=== PATIENT | female | born 1940 | race Caucasian/White ===

== ENCOUNTER → 2016-12-15 | Outpatient (CLI) | payer MEDICARE ==
[~2016-12-15] MED LIST: ADVAIR DIS1 PUFF/DO1 IH; ASPIRIN EC81 MG PO; CLARITIN DPS10 MG PO; COREG DPS12.5 MG PO; COUMADIN5 MG PO; DELTASONE DPS1 MG PO; FENOFIBRATE160 MG PO; GLUCOTROL DPS5 MG PO; HYDROCHLOROTHIA25 MG PO; LASIX DPS20 MG PO; LOSARTAN POTAS100 MG PO; MAALOX DPS30 ML PO; MACROBID100 MG PO; MIRALAX PACKET17 GM PO; MYCELEX TROCHE10 MG PO; NITROSTAT0.4 MG SL; NORVASC DPS10 MG PO; PRAVASTATIN SOD40 MG PO; PROAIR RESPICL90 MCG IH; PROTONIX40 MG PO; PROVENTIL2.5 MG/3 M IH; TYLENOL DPS325 MG PO
== END | disposition home or self-care (01) ==
LOC: RAD.S 14:05
DX: R10.9 Unspecified abdominal pain (principal); N32.89 Other specified disorders of bladder

== ENCOUNTER 2017-01-16 14:05 | Inpatient (IN) | payer MEDICARE ==
[~2017-01-16] VITALS: Ht 165.1 cm; Wt 87.8 kg
--- NOTE | ~2017-01-16 | ECH ---
Transthoracic Echocardiography Report (TTE) Demographics Patient Name GABRIELLE MACK Date of Study 01/16/2017 D Patient Number [id number] Visit Number [id number] Date of 1940 Room Number 413 Accession Number [id number] Gender Female Age 76 year(s) Referring Jie Lucero MD Cardiac Rehab Nurse Marta Salazar Physician Kathia Hutson MD [facility] Physician Interpreting Jie Lucero MD Edger Hand Physician Supervising Ordering Physician Kathia Hutson MD/DON MULLINS Nurse Stress Veterinary Laboratory Technician Conclusions Summary Technically adequate exam. The estimated left ventricular ejection fraction is 60%. Diastolic assessment reveals Grade I diastolic dysfunction. Trivial tricuspid regurgitation by color Doppler. There is moderate pulmonary hypertension. The pulmonary pressure (RVSP) is 62 mmHg. Procedure Type of Study TTE procedure:Echo Complete SF. Procedure Date Date: 01/16/2017 Start: 03:00 PM Technical Quality: Adequate visualization Indications:Shortness of breath, Coronary artery disease, Hypertension, Diabetes and History of CABG. Appropriate Use Criteria: 9 Height: 65 inches Weight: 196 pounds BSA: 1.96 m Rhythm: NSR HR: 81 bpm BP: 187/91 mmHg M-Mode/2D Measurements LV Diastolic Dimension: 4.1 cm LV Systolic Dimension: 2.71 cm LV Septum Diastolic: 0.87 cm LV PW Diastolic: 0.83 cm AO Root Dimension: 2.7 cm Cardiac Output: 4.48 l/min LA Dimension: 4.14 cm Cardiac Index: 2.29 l/min*m RV Diastolic Dimension: 3.68 cm LA volume index: 22 ml/m LVOT: 1.91 cm LVOT VTI: 19.32 cm RV Base: 3.1 cm LV Stroke volume: 55.33 ml RV Mid: 2.1 cm LV Stroke volume index: 28.23 ml/m TAPSE: 2 cm TDI-S': 10 cm/s Doppler Measurements AV Peak Velocity: 1.4 m/s MV Peak E-Wave: 0.88 m/s AV Peak Gradient: 7.84 mmHg MV Peak A-Wave: 0.94 m/s AV Mean Gradient: 4.28 mmHg MV E/A Ratio: 0.94 LVOT Peak Velocity: 0.97 m/s MV P1/2t: 70.9 msec AV Area (Continuity):1.83 cm MV Deceleration Time: 203.1 msec TR Velocity:3.85 m/s MV Area (PHT): 3.1 cm TR Gradient:59.29 mmHg PV Peak Velocity: 0.94 m/s Estimated RAP:3 mmHg PV Peak Gradient: 3.5 mmHg Estimated RVSP: 62 mmHg Estimated PASP: 62.29 mmHg E' Septal Velocity: 0.06 m/s A' Septal Velocity: 0.09 m/s E' Lateral Velocity: 0.08 m/s A' Lateral Velocity: 0.11 m/s RA Area: 12 cm Findings Left Ventricle Normal left ventricle size and function. Diastolic assessment reveals Grade I diastolic dysfunction. Right Ventricle Normal right ventricle structure and function. Left Atrium Normal left atrial size. Right Atrium Normal right atrial size. Mitral Valve Normal mitral valve structure and function. Mild mitral regurgitation by color Doppler. Aortic Valve The aortic valve is mildly sclerotic. Tricuspid Valve Normal tricuspid valve structure and function. Trivial tricuspid regurgitation by color Doppler. There is moderate pulmonary hypertension. The pulmonary pressure (RVSP) is 62 mmHg. Pulmonic Valve The pulmonic valve is not well visualized. Pericardial Effusion No evidence of pericardial effusion. Miscellaneous Visualized portions of the aortic root and ascending aorta appear normal in size. Pleural Effusion No evidence of pleural effusion. Signature
--- NOTE | ~2017-01-16 | FD ---
ADMIT: 01/16/2017 RM/LOC: 413 [facility] MR#: [id number] [address] [address] GABRIELLE MACK [address] [place] [address] Final Diagnosis SEX: F AGE: 76 : 1940 ADMISSION DATE: 01/16/2017 DISCHARGE DATE: 01/18/2017 FINAL DIAGNOSES: 1. Asthma exacerbation. 2. Allergic rhinitis. 3. Uncomplicated urinary tract infection. 4. Hypertension. 5. Diabetes, type 2. 6. Chronic venous stasis edema. 7. Coronary artery disease with stable symptoms. 8. Antibiotic induced diarrhea, not C. difficile (Clostridium difficile). The patient was sent home with no antibiotic, but she will finish out a prednisone taper and follow up with myself in the clinic in the next few days. Pratima Bae MD/ gabi JOB #: [id number] CC: Pratima Bae MD, Attending Physician Pratima Bae MD, Family Physician
--- NOTE | 2017-01-17 08:18 | HP ---
ADMIT: 01/16/2017 RM/LOC: 413 [facility] MR#: [id number] [address] [address] KARANSANJANAAUSTINANASTASIIAGABRIELLE Jeannette [address] [place] [address] History and Physical SEX: F AGE: 76 : 1940 DATE OF SERVICE: CHIEF COMPLAINT: Shortness of breath. HISTORY OF PRESENT ILLNESS: This is a 76-year-old lady who has asthmatic bronchitis as well as heart disease, hypertension, and type 2 diabetes. On January 03, she came to the clinic complaining that she had been short of breath for a couple of weeks and it was getting worse. She had a normal chest x-ray. She was treated for asthma exacerbation with a course of prednisone as well as some Levaquin. She came back on the for followup and was only slightly better. She was maintaining oxygenation in the low 90s on room air. With that, the plan was to set up an echocardiogram, and also Advair was added. Despite the Advair, she continued to have shortness of breath and was trying to "put up with it," but finally came back to the clinic today because she was unable to get around her house and take care of herself and her . The patient is typically very independent. She cares for her who is in his mid 80s and has heart failure. She has a diagnosis of asthma within the last couple of years and was on steroid inhaler and rescue inhaler for a couple of months and then was told by Pulmonology that she was doing well and could stop the steroid inhaler and just use a rescue inhaler. The rescue inhaler has not been helpful for her these last few days. She is admitted with hypoxia and asthma exacerbation and also to rule out cardiac event as cause of her symptoms. PAST MEDICAL HISTORY: Significant for coronary artery disease, and she has had four vessel bypass surgery in July of 2011. She also has type 2 diabetes, which has been well controlled with single medicine. Other history includes hypertension, gastritis, hyperlipidemia, osteoarthritis, especially of the knees, and diverticulosis. PAST SURGICAL HISTORY: Include her 4-vessel bypass and remote appendectomy, hysterectomy, and in 2012, she had left total knee replacement. MEDICATIONS: 1. Aspirin 81 mg daily. 2. Advair 100/50 one puff b.i.d., which she just started 8 days ago. 3. Albuterol nebulizer every 4 hours p.r.n. 4. Amlodipine 10 mg daily. 5. Carvedilol 12.5 mg b.i.d. 6. Fenofibrate 160 mg daily. 7. Lasix 20 mg daily. 8. Glipizide 5 mg at bedtime. 9. Hydrochlorothiazide 25 mg daily. 10.Loratadine 10 mg daily. 11.Losartan 100 mg daily. 12.Pravastatin 40 mg at bedtime. ADMIT: 01/16/2017 RM/LOC: 413 [facility] MR#: [id number] [address] [address] GABRIELLE MACK [address] [place] [address] History and Physical SEX: F AGE: 76 : 1940 SOCIAL HISTORY: She lives with her and takes care of him. She manages household and takes him to his appointments as well as cares for herself. No alcohol use. No drug use. She never smoked. Denies any significant caffeine use. ALLERGIES: BACTRIM AND PENICILLIN WHICH CAUSE RASH, BENAZEPRIL WHICH CAUSES A COUGH, AND CODEINE WHICH CAUSES NAUSEA. FAMILY HISTORY: Positive for hypertension, heart disease, and some nonspecific cancer. She is uncertain of that exactly. REVIEW OF SYSTEMS: GENERAL: She denies any fevers, although she had low- grade temp and myalgias at the very beginning of this illness. ENT: She has a little bit of nasal drainage that has been clear. She blames that on allergy symptoms. No ear pain. No throat pain. CARDIOPULMONARY: Positive for sensation of heaviness, especially when she is trying to walk around her house and cannot catch her breath. Denies any sharp pain anywhere in her chest. Also, denies any pain radiating into the arms. When she had her initial angina in 2010, her angina equivalent symptom was pain in the left arm. She has a dry cough, nonproductive. GASTROINTESTINAL: Benign. Her appetite is a little bit down. GENITOURINARY: She said she has had just a little bit of burning with urination starting today. MUSCULOSKELETAL: Positive for joint pain especially at her fingers and her knees. NEUROPSYCHIATRIC: Benign. Family that are in the room and have seen her over the last few days said she has had no confusion. She denies any falls. PHYSICAL EXAMINATION: VITAL SIGNS: Blood pressure in the clinic was 160/100, pulse rate in the 80s, and she is breathing 25 times a minute. She can speak with about 2-3 words and then has to take a breath. She is afebrile. Oxygen was between 88-90% on room air. Her weight was 197 pounds. GENERAL: She is seated in a chair with dyspnea. She is able to sit forward. HEENT: She is not doing a pursed lip breathing but has obvious shortness of breath. Ear drums are normal. Throat was clear. She looks hydrated. NECK: Had no obvious adenopathy. In the upright and approximately 50-degree position, I see no obvious jugular venous distention. LUNGS: Very diminished. I can hear breath sounds in the upper anterior and posterior areas, but I hear no breath sounds in the lower lobes. There is no wheeze. HEART: Regular. I hear no murmur. ABDOMEN: Her belly is nontender, nondistended. Bowel sounds are normal. EXTREMITIES: Have no cyanosis. She has good capillary refill. She just has a trace of ankle edema which is chronic. LABORATORY DATA: The white count is normal at 8.4, hemoglobin 14.5, platelet count 249. Her CK is 120 with a troponin of less than 0.015, and her creatinine was 0.8 with electrolytes all looking normal. Glucose was 208. ADMIT: 01/16/2017 RM/LOC: 413 [facility] MR#: [id number] [address] [address] GABRIELLE MACK [address] [place] [address] History and Physical SEX: F AGE: 76 : 1940 ASSESSMENT: 1. Asthmatic bronchitis with acute exacerbation. 2. Coronary artery disease. 3. Hypertension, currently uncontrolled. 4. Diabetes type 2. PLAN: Admit to the hospital and start her on oxygen. We will get an EKG and echocardiogram and ask Cardiology to see her. I will also start her on Lovenox for DVT prophylaxis. I do not suspect sepsis in this patient. I will give her IV steroid and more aggressive pulmonary toilet. We will continue her Advair and consider addition of other medications based on how she does with asthmatic symptoms. We will do sliding scale insulin and anticipate her sugars around a little bit higher on the steroid. I will continue her Coreg, losartan, amlodipine, hydrochlorothiazide, and Lasix for blood pressure but ask Cardiology to weigh in on better control if necessary. I did increase her Advair from 100 to 250/50, and again we will consider other interventions based on her hospital course. Pratima Bae MD/ serg JOB #: [id number] CC: Pratima Bae, Attending Physician Pratima Bae, Family Physician
[2017-01-19] MEDS ORDERED: DELTASONE DPS1 MG PO (06:39)
[2017-02-01] MEDS ORDERED: COUMADIN5 MG PO (08:48)
[2017-02-01] MEDS ORDERED: PROTONIX40 MG PO (08:49)
[2017-02-01] MEDS ORDERED: MACROBID100 MG PO (08:49)
[2017-02-01] MEDS ORDERED: MYCELEX TROCHE10 MG PO (08:49)
[2017-02-01] MEDS ORDERED: MIRALAX PACKET17 GM PO (08:50)
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
== END 2017-01-18 11:15 | disposition home or self-care (01) | DRG 202 ==
LOC: 4PCU 14:05
PROVIDERS: ADMIT Family Medicine
DX: J45.901 Unspecified asthma with (acute) exacerbation (principal); J96.01 Acute respiratory failure with hypoxia; N39.0 Urinary tract infection, site not specified; E11.22 Type 2 diabetes mellitus with diabetic chronic kidney disease; R09.02 Hypoxemia; M79.7 Fibromyalgia; N18.2 Chronic kidney disease, stage 2 (mild); I12.9 Hypertensive chronic kidney disease with stage 1 through stage 4 chronic kidney disease, or unspecified chronic kidney disease; E66.9 Obesity, unspecified; I25.10 Atherosclerotic heart disease of native coronary artery without angina pectoris; H91.90 Unspecified hearing loss, unspecified ear; E78.5 Hyperlipidemia, unspecified; M19.90 Unspecified osteoarthritis, unspecified site; K57.90 Diverticulosis of intestine, part unspecified, without perforation or abscess without bleeding; Z96.652 Presence of left artificial knee joint; Z95.1 Presence of aortocoronary bypass graft; Z79.82 Long term (current) use of aspirin; Z79.84 Long term (current) use of oral hypoglycemic drugs; Z86.718 Personal history of other venous thrombosis and embolism; Z82.49 Family history of ischemic heart disease and other diseases of the circulatory system; Z68.32 Body mass index [BMI] 32.0-32.9, adult

== ENCOUNTER 2017-01-19 21:50 | Observation (INO) | payer MEDICARE ==
[~2017-01-19] VITALS: Ht 165.1 cm; Wt 87.5 kg
[~2017-01-19 21:50] MED LIST changes: -ADVAIR DIS1 PUFF/DO1 IH; -ASPIRIN EC81 MG PO; -CLARITIN DPS10 MG PO; -COREG DPS12.5 MG PO; -COUMADIN5 MG PO; -FENOFIBRATE160 MG PO; -GLUCOTROL DPS5 MG PO; -HYDROCHLOROTHIA25 MG PO; -LASIX DPS20 MG PO; -LOSARTAN POTAS100 MG PO; -MAALOX DPS30 ML PO; -MACROBID100 MG PO; -MIRALAX PACKET17 GM PO; -MYCELEX TROCHE10 MG PO; -NITROSTAT0.4 MG SL; -NORVASC DPS10 MG PO; -PRAVASTATIN SOD40 MG PO; -PROAIR RESPICL90 MCG IH; -PROTONIX40 MG PO; -PROVENTIL2.5 MG/3 M IH; -TYLENOL DPS325 MG PO
[2017-01-20] MEDS ORDERED: COREG DPS12.5 MG PO (20:21)
[2017-01-20] MEDS ORDERED: FENOFIBRATE160 MG PO (20:21)
[2017-01-20] MEDS ORDERED: ASPIRIN EC81 MG PO (20:21)
[2017-01-20] MEDS ORDERED: NORVASC DPS10 MG PO (20:21)
[2017-01-20] MEDS ORDERED: PRAVASTATIN SOD40 MG PO (20:22)
[2017-01-20] MEDS ORDERED: LASIX DPS20 MG PO (20:22)
[2017-01-20] MEDS ORDERED: GLUCOTROL DPS5 MG PO (20:22)
[2017-01-20] MEDS ORDERED: NITROSTAT0.4 MG SL (20:22)
[2017-01-20] MEDS ORDERED: LOSARTAN POTAS100 MG PO (20:22)
[2017-01-20] MEDS ORDERED: CLARITIN DPS10 MG PO (20:22)
[2017-01-20] MEDS ORDERED: ADVAIR DIS1 PUFF/DO1 IH (20:23)
[2017-01-20] MEDS ORDERED: HYDROCHLOROTHIA25 MG PO (20:23)
[2017-01-20] MEDS ORDERED: PROAIR RESPICL90 MCG IH (20:23)
[2017-01-20] MEDS ORDERED: PROVENTIL2.5 MG/3 M IH (20:23)
[2017-01-20] MEDS ORDERED: MAALOX DPS30 ML PO (20:24)
[2017-01-20] MEDS ORDERED: TYLENOL DPS325 MG PO (20:24)
--- NOTE | 2017-01-23 10:18 | ER ---
ADMIT: 01/19/2017 RM/LOC: 414 [facility] MR#: [id number] 26[address] [facility] [address] [place], [place] [address] GABRIELLE MACK [address] [place] [address] Emergency Room Report SEX: F AGE: 76 : 1940 DATE: 01/19/2017 TIME: 2149 Please refer to my T-sheet for complete H and P. HISTORY OF PRESENT ILLNESS: Briefly, the patient is a 76-year-old who comes in with chest pain, started about 4-5 hours, was persistent. By the time she gets here, she took 2 nitroglycerin and the pain is better. She has a known history of coronary disease. She had a bypass in 2010. She was just in the hospital recently for shortness of breath, had an echo done as far as her heart, but was not have any chest pain. She has been on prednisone and she said the pain was substernal, did not radiate. She felt short of breath, 6/10 and it came on at rest. PHYSICAL EXAMINATION: VITAL SIGNS: Here are stable. Her sats are 91% on room air. GENERAL: No acute distress. HEENT: Grossly normal. LUNGS: Slightly coarse, but moving adequate air. HEART: Regular. ABDOMEN: Soft, nontender. SKIN: No rash. EXTREMITIES: She has 1+ edema. EMERGENCY DEPARTMENT COURSE: EKG was sinus rhythm, rate 87, nonspecific changes were noted. CBC was normal. Chemistries normal except BUN was 38, glucose 293, creatinine 1.4. Cardiac enzymes negative. She was given aspirin, nitroglycerin, Maalox, pain-free. Vital signs stable. I compared her prior EKG, there was a little bit of subtle changes. Secondary to this, I went ahead and talked to Dr. Julien, who will admit to the hospital. ASSESSMENT: 1. Chest pain, slightly atypical. 2. Known coronary artery disease. PLAN: Admit to the hospital under the care of Dr. Julien. Archie Washington MD/ serg JOB #: [id number] CC: Pratima Bae MD, Attending Physician Pratima Bae MD, Family Physician
--- NOTE | 2017-01-24 09:12 | HP ---
ADMIT: 01/19/2017 RM/LOC: 414 [facility] MR#: [id number] [id number] [facility] [address] [place] [id number] KARANSANJANAAUSTINANASTASIIAGABRIELLE D [address] [place] [address] History and Physical SEX: F AGE: 76 : 1940 DATE OF SERVICE: 01/20/2017 CHIEF COMPLAINT: Chest pain. HISTORY OF PRESENT ILLNESS: The patient is a 76-year-old, white female, who presented to the emergency room last night complaining of chest pain earlier in the evening. It sounds like the patient was discharged after a stay for shortness of breath on the . She had seen Cardiology during her stay and they felt it might be more likely due to an asthma exacerbation. While she was in, she was on some antibiotics and steroids. She was not discharged on antibiotics, however, and had followup scheduled and was feeling better from a shortness of breath standpoint, but started getting some diarrhea yesterday. It was pretty continuous through the morning. She had had some loose stools in the hospital and had a negative C. diff. It got worse at home now and she was contacted by our office for a hospital followup phone call and reported that. We had her hold her hydrochlorothiazide and she tried a dose of Imodium and that did really slow things down. About one in the afternoon, she started getting some chest pain. She thought it was maybe more stomach related and so waited a bit and it did go away at first. It came back later in the evening and she tried some antacid then and it did not help. Finally took two nitroglycerin and that did take care of the pain. She was concerned and also came to the emergency room. The ER doctor felt there might be some questionable EKG changes. They also placed her on heparin. Her cardiac enzymes were normal though on admission, and she has been chest pain-free really since she was at home. No further chest pain overnight. Cardiac enzymes have all remained negative. Did just have now another loose stool. No blood in the stools or black tarry stools, and she denies any abdominal cramping or epigastric pain. Has not felt short of breath. PAST MEDICAL HISTORY: Again just hospitalized for shortness of breath that was possibly an asthma exacerbation on 01/16/2017 to 01/18/2017. Also, has coronary artery disease and has had coronary artery bypass grafting, asthma, hypertension, diabetes, hyperlipidemia, osteoarthritis, and diverticulosis. PAST SURGICAL HISTORY: Includes her four-vessel cardiac bypass and remote appendectomy, hysterectomy, and left total knee replacement. MEDICATIONS: Aspirin 81 mg daily, carvedilol 12.5 mg b.i.d., amlodipine 10 mg daily, fenofibrate 160 mg daily, furosemide 20 mg daily, glipizide 5 mg at bedtime, loratadine 10 mg daily, losartan 100 mg daily, Nitrostat 0.4 mg q.5 minutes as needed x3, pravastatin 40 mg at bedtime, ProAir 90 mcg one puff every 4 to 6 hours as needed, Advair 250/50 one puff b.i.d., albuterol nebs one every 4 to 6 hours as needed, hydrochlorothiazide 25 mg daily, Maalox 30 mL q.6 hours as needed, Tylenol 650 mg q.4 hours as needed. FAMILY HISTORY: Please see her recent H and P from the . SOCIAL HISTORY: Please see her recent H and P from the . ADMIT: 01/19/2017 RM/LOC: 414 [facility] MR#: [id number] [id number] [facility] [address] [place] [id number] GABRIELLE MACK [address] [place] [address] History and Physical SEX: F AGE: 76 : 1940 ALLERGIES: BACTRIM AND PENICILLIN WHICH CAUSE A RASH. BENAZEPRIL CAUSES COUGH, AND CODEINE CAUSES NAUSEA. REVIEW OF SYSTEMS: CONSTITUTIONAL: The patient denies any fevers or chills or generalized weakness. HEENT: No headaches, vision changes, or cold symptoms. CARDIAC: Just the chest pain as above. No palpitations. No syncope. RESPIRATORY: Shortness of breath is better, and she denies cough. GI: As above. Did have one episode of nausea and vomiting yesterday when the pain first came on. None since. Stools are loose, but no blood or black tarry stools. : She has been urinating, it is a little darker than normal. MUSCULOSKELETAL: She has chronic arthritis pains, but no acute changes. Rest of the review of systems is negative. PHYSICAL EXAMINATION: VITAL SIGNS: The patient has been afebrile. Blood pressure this morning is 146/63, pulse 74, respirations 16, and sats 96% on 3 L. Weight 192 pounds. GENERAL: She is alert and oriented x3 and in no acute distress. HEART: Regular in rate and rhythm without murmurs. LUNGS: Sound clear to auscultation bilaterally. ABDOMEN: Soft, nondistended, mildly tender in the epigastric area, but that has not reproduced the pain she experienced yesterday. EXTREMITIES: Have no edema. No posterior calf tenderness. No focal neurologic changes are noted. No skin rashes are noted. LABS: Her white count is 9.7, hemoglobin 14.7, BUN 38, creatinine 1.4, which is a slight bump from her baseline of 0.8 to 1. Glucose was 293, magnesium 2.4. Cardiac enzymes have been negative for three sets. EKG to [place] shows no significant change from her previous. Chest x-ray also shows no acute change. ASSESSMENT: 1. Chest pain. 2. Coronary artery disease. 3. Hypertension. 4. Diabetes mellitus type 2. 5. Gastroesophageal reflux. ADMIT: 01/19/2017 RM/LOC: 414 [facility] MR#: [id number] [address] [address] GABRIELLE MACK [address] [facility] [place] [place] [address] History and Physical SEX: F AGE: 76 : 1940 6. Hyperlipidemia. 7. Diarrhea with some mild dehydration. 8. Osteoarthritis. PLAN: We will have Cardiology see as well with this new chest pain. She was placed on a heparin drip by the ER physician overnight. We will stop that with her negative enzymes and no recurrent chest pain. We will leave further cardiac evaluation up to Cardiology, but if they are going to workup as an outpatient she should be fine to discharge to home. We will have her hold her Lasix and hydrochlorothiazide until the diarrhea resolves and can continue to use the Imodium sparingly as needed. She will keep her followup appointments arranged with Dr. Bae after her last hospitalization. Madison Julien MD/ serg JOB #: [id number] CC: Pratima Bae, Attending Physician Pratima Bae, Family Physician
[2017-02-01] MEDS ORDERED: COUMADIN5 MG PO (08:48)
[2017-02-01] MEDS ORDERED: MACROBID100 MG PO (08:49)
[2017-02-01] MEDS ORDERED: MYCELEX TROCHE10 MG PO (08:49)
[2017-02-01] MEDS ORDERED: PROTONIX40 MG PO (08:49)
[2017-02-01] MEDS ORDERED: MIRALAX PACKET17 GM PO (08:50)
== END 2017-01-20 11:35 | disposition home or self-care (01) ==
LOC: ER 21:50 → 4PCU 23:22
PROVIDERS: ADMIT Family Medicine
DX: R07.9 Chest pain, unspecified (principal); I10 Essential (primary) hypertension; E11.9 Type 2 diabetes mellitus without complications; Z23 Encounter for immunization; E78.5 Hyperlipidemia, unspecified; M19.90 Unspecified osteoarthritis, unspecified site; I25.10 Atherosclerotic heart disease of native coronary artery without angina pectoris; K21.9 Gastro-esophageal reflux disease without esophagitis; Z88.0 Allergy status to penicillin; Z88.1 Allergy status to other antibiotic agents; Z88.5 Allergy status to narcotic agent; Z88.8 Allergy status to other drugs, medicaments and biological substances; Z95.1 Presence of aortocoronary bypass graft; Z90.49 Acquired absence of other specified parts of digestive tract; Z90.710 Acquired absence of both cervix and uterus; Z96.652 Presence of left artificial knee joint; Z79.82 Long term (current) use of aspirin; Z79.899 Other long term (current) drug therapy; Z98.890 Other specified postprocedural states

== ENCOUNTER 2017-01-25 15:11 | Inpatient (IN) | payer MEDICARE ==
[~2017-01-25] VITALS: Ht 165.1 cm; Wt 88.8 kg
--- NOTE | ~2017-01-25 | ECH ---
Transthoracic Echocardiography Report (TTE) Demographics Patient Name GABRIELLE MACK Date of Study 01/26/2017 D Patient Number [id number] Visit Number [id number] Date of 1940 Room Number 420 Accession Number [id number] Gender Female Age 76 year(s) Referring Kathia Hutson MD Gauge Inspector Marta Salazar Physician RDCS Physician Interpreting Regis MULLINS Atmospheric Technician Physician Vaibhav Supervising Ordering Physician Kathia Hutson MD/DON MULLINS Nurse Stress Wet Pan Mixer Conclusions Contractility Score Summary Normal Left Ventricular contractility was noted. Summary Technically adequate exam. The estimated left ventricular ejection fraction is 60%. The interventricular septum is flattened which is consistent with elevated right ventricular pressure / and or volume overload. Right ventricle is moderately enlarged with mildly reduced systolic function. Moderate tricuspid regurgitation by color Doppler. There is moderate pulmonary hypertension. The pulmonary pressure (RVSP) is 62 mmHg. Unchanged from study of 01/16/2017. Recommendation The patient will be given the results of this study by the physician who ordered the exam. Procedure Type of Study TTE procedure:Echo Complete SF. Procedure Date Date: 01/26/2017 Start: 09:15 AM Technical Quality: Adequate visualization Indications:Pulmonary embolus, Coronary artery disease, Diabetes, Hypertension, Elevated Troponin and History of CABG. Appropriate Use Criteria: 9 Height: 65 inches Weight: 193 pounds BSA: 1.95 m Rhythm: Within normal limits HR: 100 bpm BP: 166/95 mmHg M-Mode/2D Measurements LV Diastolic Dimension: 3.72 cm LV Systolic Dimension: 2.08 cm LV Septum Diastolic: 0.81 cm LV PW Diastolic: 0.81 cm AO Root Dimension: 2.8 cm LA Dimension: 3.98 cm RV Diastolic Dimension: 4.54 cm LA volume: 26.84 ml LA volume index: 14 ml/m RV Base: 3.6 cm RV Mid: 2.5 cm TAPSE: 1.8 cm TDI-S': 9 cm/s Doppler Measurements TR Velocity:3.85 m/s TR Gradient:59.29 mmHg Estimated RAP:3 mmHg Estimated PASP: 62.29 mmHg Estimated RVSP: 62 mmHg RA Area: 14.34 cm Findings Left Ventricle Normal left ventricle size and function. The interventricular septum is flattened which is consistent with elevated right ventricular pressure / and or volume overload. Right Ventricle Moderately enlarged. Systolic function is mildly reduced. Left Atrium Normal left atrial size. Right Atrium Normal right atrial size. Mitral Valve Normal mitral valve structure and function. Aortic Valve The aortic valve is mildly sclerotic. Tricuspid Valve Normal tricuspid valve structure and function. Moderate tricuspid regurgitation by color Doppler. There is moderate pulmonary hypertension. The pulmonary pressure (RVSP) is 62 mmHg. Unchanged from study of 01/16/2017. Pulmonic Valve Normal pulmonic valve structure and function. Pericardial Effusion No evidence of pericardial effusion. Miscellaneous Visualized portions of the aortic root and ascending aorta appear normal in size. Pleural Effusion No evidence of pleural effusion. Contractility Score LV regional wall motion:(0-Non visualized 1-Normal 2-Hypokinesis 3-Akinesis 4-Dyskinesis 5-Aneurysm) Signature
[~2017-01-25 15:11] MED LIST changes: +ADVAIR DIS1 PUFF/DO1 IH; +ASPIRIN EC81 MG PO; +CLARITIN DPS10 MG PO; +COREG DPS12.5 MG PO; +FENOFIBRATE160 MG PO; +GLUCOTROL DPS5 MG PO; +HYDROCHLOROTHIA25 MG PO; +LASIX DPS20 MG PO; +LOSARTAN POTAS100 MG PO; +MAALOX DPS30 ML PO; +NITROSTAT0.4 MG SL; +NORVASC DPS10 MG PO; +PRAVASTATIN SOD40 MG PO; +PROAIR RESPICL90 MCG IH; +PROVENTIL2.5 MG/3 M IH; +TYLENOL DPS325 MG PO
--- NOTE | 2017-01-30 16:04 | ER ---
ADMIT: 01/25/2017 RM/LOC: 420 [facility] MR#: [id number] 2620 [facility] [address] [place] [id number] GABRIELLE MACK [address] [place] [address] Emergency Room Report SEX: F AGE: 76 : 1940 DATE: 01/25/2017 HISTORY OF PRESENT ILLNESS: The patient is a 76-year-old female, who was just recently discharged from the hospital with chest pain, but at this moment, she is coming in with shortness of breath, came kind of sudden. She has had a diagnosis of asthma and is concerned that this may just be going on as well. She has an appointment tomorrow to see Dr. Bae at 9:20, but decided to come in today to get evaluated because of her respiration issues. PAST MEDICAL HISTORY: Cardiac disease with diabetes type 2, hypertension, asthma, GERD, cardiac bypass with appendectomy, cholecystectomy, left total knee rotator x2, hysterectomy, cholecystectomy. MEDICATIONS: See T-sheet. ALLERGIES: CODEINE, PENICILLIN, SULFA, ZONIA INHIBITOR. PHYSICAL EXAMINATION: VITAL SIGNS: Blood pressure 179/84, heart rate 124, respirations 32, temp is 97.1, O2 sats 95%. GENERAL: Moderately anxious. NECK: Normal inspection. RESPIRATIONS: Accessory muscle use. CVS: Tachycardia. ABDOMEN: Nontender. SKIN: Good color and intact. EXTREMITIES: She does have edema in entire leg, right and left. Nontender. NEURO: Oriented x4. Mood and affect appropriate. LABORATORY AND X-RAY DATA: White count 12.2, CO2 is 18, glucose 367, creatinine is 1.2 with AST of 61, BNP is 5675, troponin 0.083. Normal sinus rhythm, rate is 105. Chest x-ray, cardiomegaly. No pneumonia although it cannot be excluded. CLINICAL IMPRESSION: ADMIT: 01/25/2017 RM/LOC: 420 [facility] MR#: [id number] 2620 [facility] [address] [place] [id number] GABRIELLE MACK [address] [place] [address] Emergency Room Report SEX: F AGE: 76 : 1940 1. Cardiomegaly. 2. Congestive heart failure exacerbation. 3. Hyperglycemia. 4. Shortness of breath. Dr. Campbell Escobedo was contacted for admission for Dr. Bea. The patient did not want to be admitted because she has been recently in the hospital, but she lives by herself, and even though she has good family support, her breathing was becoming a nuisance to her even though she was keeping her O2 sats at 97 and 98. Orders received. She will be started on azithromycin, also Lasix 40 mg IV, and four baby aspirins order by Dr. Campbell Escobedo. The patient awaiting room placement. STAR Gray / Walt Mix MD / modl JOB #: [id number] CC: Pratima Bae MD, Attending Physician Pratima Bae MD, Family Physician
[2017-02-01] MEDS ORDERED: COUMADIN5 MG PO (08:48)
[2017-02-01] MEDS ORDERED: MYCELEX TROCHE10 MG PO (08:49)
[2017-02-01] MEDS ORDERED: MACROBID100 MG PO (08:49)
[2017-02-01] MEDS ORDERED: PROTONIX40 MG PO (08:49)
[2017-02-01] MEDS ORDERED: MIRALAX PACKET17 GM PO (08:50)
--- NOTE | 2017-02-08 09:47 | DS ---
ADMIT: 01/25/2017 RM/LOC: 420 [facility] MR#: [id number] [address] [address] VICTORIA MACK [address] [place] [address] Discharge Summary SEX: F AGE: 76 : 1940 ADMISSION DATE: 01/25/2017 DISCHARGE DATE: 01/30/2017 FINAL DIAGNOSIS: 1. Bilateral pulmonary emboli. 2. Right deep venous thrombosis in the leg. 3. Diabetes type 2. 4. Hypertension. 5. Urinary tract infection. 6. Coronary artery disease. HOSPITAL COURSE: Victoria was admitted on 01/25/2017 with increasing severe shortness of breath. She had CT scan showing bilateral pulmonary emboli including saddle emboli. The following morning, I checked ultrasound of both legs and she also has right deep venous thrombosis. Echocardiogram was done and showed ejection fraction of 60%. Right ventricle was "moderately enlarged" and there was also moderate pulmonary pressures. It was actually unchanged from 01/16/2017 echocardiogram. The patient was started on heparin immediately upon diagnosis of the pulmonary emboli. On day three, she was allowed to get up to the chair and move around. Also on 01/28, she was started on Coumadin. She did complain of some urinary symptoms and on 01/27 had a urinalysis and started on antibiotic with Macrobid oral. On 01/28, she complained of her mouth hurting and has evidence of thrush so was started on some Mycelex troches per mouth q.i.d. On 01/29/2017, the INR is therapeutic at 2.23. She has no shortness of breath. Blood pressures have been stable. She has been on room air through the entire hospital stay. Cardiology has signed off and plans to see her in one month. The patient had findings of bilateral pulmonary emboli but non-severe disease. Her vitals were stable and she did not require oxygenation more than room air. She is aware this is a diagnosis with high-risk. However, since she is getting along well I feel comfortable sending her home now that she is therapeutic with Coumadin. When she was initially admitted she was started on antibiotic and steroid because she has history of asthma and concern was that this was exacerbation. We quickly weaned her off the steroids and stop the antibiotic. However, being on the steroid for a couple of days made her sugars spike. We will get her back on her glipizide at home and she will monitor her own sugars. She will bring a list of sugars to her office appointment as well. DISCHARGE MEDICATIONS: On dismissal medicines are: 1. Aspirin 81 mg daily. 2. Claritin 10 mg daily. 3. Coreg 12.5 mg b.i.d. 4. Coumadin 5 mg daily. ADMIT: 01/25/2017 RM/LOC: 420 [facility] MR#: [id number] [address] [address] VICTORIA MACK [address] [place] [address] Discharge Summary SEX: F AGE: 76 : 1940 5. Cozaar 100 mg daily. 6. Macrobid 100 mg b.i.d. through 02/05/2017. 7. Mycelex troches 10 mg q.i.d. dissolved in mouth, for 5 days. 8. Norvasc 10 mg daily. 9. Pravachol 40 mg at bedtime. 10.Protonix 40 mg b.i.d. and will do b.i.d. for two weeks and then decrease down to daily. I will order #[id number] with three refills for the Protonix. 11.Fenofibrate 160 mg daily. 12.Advair 250/50 2 puffs b.i.d. 13.DuoNeb q.4 hours p.r.n. 14.She will also have p.r.n. Maalox, Tylenol and nitroglycerin. 15.I want her to resume her glipizide 5 mg daily with her evening meal. 16.Furosemide 20 mg daily in the morning. 17.She will use ProAir metered dose inhaler, one puff b.i.d. on a scheduled basis. 18.Also resume hydrochlorothiazide 25 mg daily. DISCHARGE INSTRUCTIONS: She will follow up with myself in 48 hours and will recheck on her blood pressure, oxygenation as well as her PT/INR on that date. Pratima Bae MD/ kedarg JOB #: [id number] CC: Pratima Bae MD, Attending Physician Pratima Bae MD, Family Physician
--- NOTE | 2017-02-18 20:30 | HP ---
ADMIT: 01/25/2017 RM/LOC: 420 [facility] MR#: [id number] [address] [address] GABRIELLE MACK [address] [place] [address] History and Physical SEX: F AGE: 76 : 1940 DATE OF SERVICE: CHIEF COMPLAINT: Shortness of breath. HISTORY OF PRESENT ILLNESS: The patient is a 76-year-old, female, with two recent visits to [facility], who presented to the ER today with some shortness of breath, does have a history of asthma as well as coronary artery disease. Recently been evaluated by Cardiology. On January 16, echo showed an EF of 60%, did have grade 1 diastolic dysfunction and moderate pulmonary hypertension. She came to the ER with worsening of her shortness of breath despite supportive cares. She denies any other concerns or complaints at this time. PAST MEDICAL HISTORY: Significant for coronary artery disease, type 2 diabetes, hypertension, gastritis, hyperlipidemia, osteoarthritis, pulmonary embolus, asthma, presumed diastolic heart failure. PAST SURGICAL HISTORY: Includes four vessel bypass, appendectomy, hysterectomy, and a total knee. ALLERGIES: ZONIA INHIBITORS, PENICILLIN, SULFA. MEDICATIONS: See MAR. FAMILY HISTORY: See recent H and P. SOCIAL HISTORY: Please see 01/16/2017 H and P. REVIEW OF SYSTEMS: She notes shortness of breath. She denies fevers, chills, chest pain, headaches, nausea, vomiting, numbness, tingling, melena, or vision changes. She denies any history of head bleed, GI bleed, or any type of indication having anticoagulation. OBJECTIVE: VITAL SIGNS: Temp 97.4, pulse 131, respirations 18, blood pressure 130/80, O2 is 97%. GENERAL: She is alert, awake, oriented, minimally tachypneic, no acute distress. HEENT: Normocephalic, atraumatic. Pupils are round and reactive to light. HEART: Tachycardic, regular rhythm. LUNGS: Clear to auscultation bilaterally. Relatively clear throughout. ABDOMEN: Soft, nontender, and nondistended. EXTREMITIES: No clubbing or cyanosis. Trace to 1+ edema, which she states is chronic for her. LABORATORY AND X-RAY DATA: Troponin is 0.082 and 0.083. White count 12, hemoglobin 14.4, platelets 296. Sodium 138, potassium 3.8, chloride 106, CO2 is 18, BUN is 22, glucose 367, creatinine 1.2, calcium 8.7, bilirubin is 0.6, protein 7.3, albumin 3.4, AST 61, ALT , BNP was 5675. Chest x-ray shows left lung opacities, scarring, possible pneumonia. ADMIT: 01/25/2017 RM/LOC: 420 [facility] MR#: [id number] [address] [place] [id number] GABRIELLE MACK [address] [place] [address] History and Physical SEX: F AGE: 76 : 1940 ASSESSMENT: This is a 76-year-old female with: 1. Shortness of breath. 2. Possible diastolic heart failure. 3. Asthma. 4. Coronary artery disease. 5. Elevated troponin. 6. Nonspecific EKG changes. 7. Diabetes. 8. History of pulmonary embolism. PLAN: She was given IV Lasix. We will also cover her with DuoNebs, antibiotics. Given her history and multiple visits for shortness of breath, we will also check a CTA, avoid nephrotoxic agents. The risks and benefits were discussed with the patient. Campbell Escobedo MD/ serg JOB #: [id number] CC: Pratima Bae, Attending Physician Pratima Bae, Family Physician
== END 2017-01-30 12:48 | disposition home or self-care (01) | DRG 176 ==
LOC: ER 15:11 → 4PCU 17:47
PROVIDERS: ADMIT Family Medicine
DX: I26.92 Saddle embolus of pulmonary artery without acute cor pulmonale (principal); I50.32 Chronic diastolic (congestive) heart failure; B37.0 Candidal stomatitis; N39.0 Urinary tract infection, site not specified; I27.2 Other secondary pulmonary hypertension; E11.9 Type 2 diabetes mellitus without complications; I82.431 Acute embolism and thrombosis of right popliteal vein; E78.5 Hyperlipidemia, unspecified; B96.20 Unspecified Escherichia coli [E. coli] as the cause of diseases classified elsewhere; J45.909 Unspecified asthma, uncomplicated; I25.10 Atherosclerotic heart disease of native coronary artery without angina pectoris; I10 Essential (primary) hypertension; K21.9 Gastro-esophageal reflux disease without esophagitis; R79.89 Other specified abnormal findings of blood chemistry; I51.7 Cardiomegaly; R94.31 Abnormal electrocardiogram [ECG] [EKG]; M19.90 Unspecified osteoarthritis, unspecified site; Z95.1 Presence of aortocoronary bypass graft; Z96.652 Presence of left artificial knee joint; Z86.711 Personal history of pulmonary embolism